=== PATIENT | male | born 1960 | race Caucasian/White ===

== ENCOUNTER → 2021-09-22 14:50 | Outpatient (CLI) | payer OTHER, SELFPAY ==
[2021-09-22 16:15] LABS: COVID19 -Nasal RAPID Negative (Negative)
== END ==
PROVIDERS: Visit Provider Physician Assistant
DX: Z20.822 Contact with and (suspected) exposure to COVID-19 (principal)
CPT/HCPCS: 87635

== ENCOUNTER 2021-09-24 09:08 | Observation (INO) | payer OTHER, SELFPAY ==
[2021-09-11 08:47] VITALS: BMI 39.6
[2021-09-24] VITALS (23 sets, daily range): BP systolic 115–170; BP diastolic 70–85; PULSE 75–95; RESP 8–18; TEMP 36.7–37.1; O2SAT 90–100; BMI 39.6
[2021-09-24] MEDS: LACTATED RINGERS 1,000 ML 42 ML IV ×2 (09:50→13:40)
--- NOTE | 2021-09-24 10:47 | PM.PREOP ---
Pre-operative Note COVID-19 COVID-19 status: Negative Result date/Date tested (Pos, Neg/Pending): 09/23/21 Interval Note History & Physical reviewed/Exam performed by Physician: Yes Changes to H&P: No
[2021-09-24] MEDS: CEFAZOLIN 2 GM/20 ML SYRINGE IV ×2 (11:15→18:25)
--- NOTE | 2021-09-24 11:38 | SUR.OPER ---
Prone on spine table, head in foam head support, padded chest and pelvic supports, gel pad at knees, lower legs supported by pillows; nipples, genitalia and toes free of pressure, arms secured on foam padded arm boards at <90 degrees abduction. Tape over blanket at thigh secured to table. Gel pad placed between patients heels and to left abdominal area between bed frame and patient. In pre-op, patients glasses and cell phone placed in patients belongings bag. Patient stated he turned off his neuro stimulator and device brought to OR then to PACU with patient.
[2021-09-24] MEDS: BUPIVACAINE 0.25% (PF) 30 ML, EPINEPHrine 0.15 MG INJ (11:49)
[2021-09-24] MEDS: BUPIVACAINE LIPOSOME 266 MG/20 ML VIAL INJ (13:05)
--- NOTE | 2021-09-24 13:09 | DI.RAD.S_ITS ---
PROCEDURE: XR LUMBAR SPINE 2-3V INDICATIONS: L3-4 TLIF TECHNIQUE: 2 intraoperative fluoroscopic views of the lumbar spine were acquired. COMPARISON: None. FINDINGS: Intraoperative fluoroscopic images of lumbar spine shows transpedicular fusion of L3 and L4 vertebral bodies with intervertebral spacer placement. IMPRESSION: Fluoro guidance was provided intraoperatively for posterior fusion at L3-4 level. Dictated by: Qamar Rodney M.D. on 09/24/2021 at 13:47 Approved by: Qamar Rodney M.D. on 09/24/2021 at 13:56
--- NOTE | 2021-09-24 13:30 | P.OP_ITS ---
Operative Date/Time/Diagnoses Date of procedure: 09/24/21 Time of procedure: 11:30 Pre-op diagnosis: 1. L3-4 far lateral disc herniation with radiculopathy 2. Spinal stenosis with radiculopathy Post-op diagnosis: same Procedure & Clinicians Procedure: 1. L3-4 Postero-lateral and posterior interbody fusion 2. L3-4 interbody cage placement. 3. L3-4 decompressive laminectomy with bilateral facetecomies 4. L3-4 Posterior non-segmental instrumentation 5. [place] of bone marrow from iliac crest 6. Utilization of microsurgical technique and operating microscope Same procedure as scheduled: Yes Indications: Patient has been having chronic back pain and worsening lumbar radiculopathy. Patient failed multiple conservative management with worsening pain weakness and numbness in her lower extremity. Patient has been having difficulty performing activity of daily living. After discussing risks benefits of treatment options, patient elected proceed with surgery. Surgeon: Anita Rosario Crusher And Binder Operator: Benigno Bhat Click Yes if Unassisted: No Anesthesia Type: General Operative Notes Closure Type: primary Specimen(s): none sent Prosthetic devices, grafts, tissues, transplants, or devices: Globus revolve screws, Rise cage Estimated Blood Loss (mL): 50 Blood products transfused: none Procedure in detail: Patient was seen in the preoperative area. Risks and benefits of the surgery was discussed with the patient. Informed consent was obtained from the patient and placed in the chart. Surgical site was marked. Patient was taken to the operative room. General anesthesia was administered. Prophylactic antibiotic was given to the patient less than 30 min before the incision was made. Patient was placed into a prone position on the Uriel table. Patient's back was then prepped and draped in the sterile fashion. Time-out was performed at this time. Using AP and lateral C-arm imaging the interval between L3-4 was identified and marked on patient's back. A 2 inch incision 2 in from midline was made on the right side first. The spinal cord stimulator cable/wire was immediately visualized after the skin incision was made. The wire is quite superficial buried in the superficial subcutaneous fat. The wire was protected throughout the entire procedure. The fascia was incised in line with skin incision. Globus MARS retractors was placed inside the incision and docked onto the L3 lamina. Using microsurgical technique and operating microscope, a L3 laminectomy and L3- 4 facetectomy was performed using a Kerrison rongeur. The disc space at L3-4 was identified. And a total diskectomy was performed at L3-4 level. The endplates were decorticated using a rasp and shaver. The total diskectomy and decortication was performed at L3-4 level in order to to accomplish a L3-4 fusion. Patient was found have a large L3-4 far lateral disc herniation impinging on the L3 nerve root on the right side. The disc herniation along with the rest of the disc material was removed and the neural foramen and epidural space was fully decompressed after the diskectomy and facetectomy laminectomy was completed. The local bone from the laminectomy and facetectomy was saved for local bone grafting. After the total diskectomy and decortication was completed, Trifecta bone graft material was combined with local bone that was harvested earlier. At this time, a separate skin is incision was made over the iliac crest. A Jamshidi needle was inserted into the iliac crest through a separate skin incision. 5 cc of bone marrow aspiration was obtained through the separate skin incision using a Jamshidi needle from the iliac crest. The bone marrow aspiration was combined with local bone and the Trifecta bone grafting material. The bone grafting material was placed into the L3-4 interbody space along with a expandable cage. The cage was expanded to its maximum height using the torque limiting screwdriver. At this time a mirror image incision was made on the left side. The fascia was incised in line with the skin incision. Globus MARS retractor was inserted and docked onto the L3-4 posterolateral gutter. Using the power drill, posterior- lateral decortication was performed at L3-4 level until bleeding cortical bone was identified. The remaining bone grafting material was placed into the L3-4 posterior lateral gutter he order to accomplish posterolateral fusion at the L3- 4 level. Using the double C-arm technique, pedicle screws were placed into the L3-4 pedicles bilaterally. This was done by placing the Jamshidi needle into the pedicles, then placing the guidewires over the Jamshidi needle, and finally placing the cannulated screws over the guidewires bilaterally. After the pedicle screws were placed, 2 titanium rods was locked into the heads of the pedicle screws using locking caps and torque limiting screwdriver. After all the hardware was placed, and confirmed with AP and lateral C-arm imaging, the wound was then irrigated with sterile normal saline and packed with Ray-Pablito gauze for 3 min to accomplish hemostasis. After the gauze was removed the deep fascia was closed with #1 Vicryl suture. The subcutaneous layer was closed with 2-0 Vicryl. The skin was closed with skin marlen. Patient tolerated the procedure well. There were no complications. Complications: none Post-operative Condition: stable Disposition: PACU Plan for aftercare: Admit to inpatient hospital
[2021-09-24] MEDS: HYDROMORPHONE 2 MG INJ IV ×3 (13:39→14:05)
[2021-09-24] MEDS: hydrOXYzine 50 MG/ML INJ IM (13:41)
[2021-09-24] MEDS: OXYCODONE/ACETAMINOPHEN 5/325 TABLET 1 TAB PO ×2 (13:53→14:47)
[2021-09-24] MEDS: SODIUM CHLORIDE 0.9% 1,000 ML 100 ML IV (15:55)
[2021-09-24] MEDS: OXYCODONE/ACETAMINOPHEN 5/325 TABLET 2 TAB PO ×2 (18:27→22:32)
[2021-09-24] MEDS: DOCUSATE 100 MG CAPSULE PO (20:19)
[2021-09-24] MEDS: ATORVASTATIN 20 MG TABLET PO (20:19)
[2021-09-24] MEDS: SENNOSIDES 8.6 MG TABLET 17.2 MG PO (20:19)
[2021-09-24] MEDS: hydrOXYzine pamoate 25 MG CAPSULE PO (20:19)
[2021-09-24] MEDS: GABAPENTIN 600 MG TABLET 1200 MG PO (20:19)
[2021-09-24] MEDS: HYDROMORPHONE 0.5 MG INJ IV (20:23)
[2021-09-25] MEDS: SODIUM CHLORIDE 0.9% 1,000 ML 100 ML IV (01:27)
[2021-09-25] MEDS: HYDROMORPHONE 0.5 MG INJ IV ×3 (01:31→11:40)
[2021-09-25 03:00] VITALS: BP 128/69; PULSE 69; RESP 16; TEMP 36.8; O2SAT 95
[2021-09-25] MEDS: CEFAZOLIN 2 GM/20 ML SYRINGE IV (03:25)
[2021-09-25] MEDS: OXYCODONE/ACETAMINOPHEN 5/325 TABLET 2 TAB PO ×2 (03:25→09:40)
[2021-09-25] MEDS: ESCITALOPRAM 10 MG TABLET 20 MG PO (08:26)
[2021-09-25] MEDS: METFORMIN HCL 500 MG TABLET PO (08:26)
[2021-09-25] MEDS: DOCUSATE 100 MG CAPSULE PO (08:26)
[2021-09-25] MEDS: GABAPENTIN 300 MG CAPSULE 900 MG PO (08:28)
[2021-09-25 09:27] VITALS: BP 142/82; PULSE 65; RESP 16; TEMP 37.2; O2SAT 96
[2021-09-25] MEDS: hydrOXYzine pamoate 25 MG CAPSULE PO (09:40)
--- NOTE | 2021-09-25 10:28 | DIET.CONS ---
Dietary Consultation Note RD Note: Dietary Unit Host notified RD pt newly dx c DM2, not indicated in chart. Pt on general diet c no BG checks. Pt reports not knowing how to manage condition. RD notified nursing staff who will contact Ortho for orders. Adequate BG control will aid healing. Pt PCP outside of our area, recc pt f/u c PCP for outpatient DM education. This RD to give starter nutrition education today. Ht: 170.18 cm Wt: 114.759 kg BMI: 39.6 UBW: Last BM: 09/24/21 (09/24/21 15:22) MNA: 14 Joe Score: 19 Diet: 09/24/21 Dinner General (Regular) Diet Diet Modifications: Nutrition Percent Meal Consumed 100% 09/25/21 09:27 Percent Meal Consumed 100% 09/24/21 18:30 Electronically Signed by: Alissa Ramirez 09/25/21 10:28 Clinical Dietitian [address] [address]
--- NOTE | 2021-09-25 10:41 | P.DS_ITS ---
History of Present Illness History of Present Illness Date Patient Seen: 09/25/21 Time Patient Seen: 10:41 Chief complaint: Low back pain s/p TLIF Narrative: Patient is complaining of moderate low back pain this morning. He has a chronic pain management patient. He notes his right-sided leg symptoms have improved significantly, he notes a decrease in burning and nerve type pain in the right leg. No fevers, chills, night sweats. Overall he is feeling well and working with PT, and would like to be discharged home today. Discharge Providers Provider Discharge Date: 09/25/21 Primary care physician: Breonna Graf DO Consults: 09/24/21 14:58 Consult to Occupational Therapy Evaluate & Treat Comment: Physician Instructions: Evaluate and treat Consult to Physical Therapy Evaluate & Treat Comment: Physician Instructions: Evaluate and Treat Discharge provider: Beverly Cortes PA-C Summary Hospital Course Discharge Diagnosis: 1. L3-4 far lateral disc herniation with radiculopathy 2. Spinal stenosis with radiculopathy Hospital Course: Date of procedure: 09/24/21 Time of procedure: 11:30 Procedure & Clinicians Procedure: 1. L3-4 Postero-lateral and posterior interbody fusion 2. L3-4 interbody cage placement. 3. L3-4 decompressive laminectomy with bilateral facetecomies 4. L3-4 Posterior non-segmental instrumentation 5. [place] of bone marrow from iliac crest 6. Utilization of microsurgical technique and operating microscope Same procedure as scheduled: Yes Indications: Patient has been having chronic back pain and worsening lumbar radiculopathy. Patient failed multiple conservative management with worsening pain weakness and numbness in her lower extremity.? Patient has been having difficulty performing activity of daily living.? After discussing risks benefits of treatment options, patient elected proceed with surgery. Surgeon: Anita Rosario Director Of Entertainment: Benigno Bhat Click Yes if Unassisted: No Anesthesia Type: General Operative Notes Closure Type: primary Specimen(s): none sent Prosthetic devices, grafts, tissues, transplants, or devices: Globus revolve screws, Rise cage Estimated Blood Loss (mL): 50 Blood products transfused: none Status at Discharge Cognitive/behavioral status at discharge: oriented Functional status at discharge: uses cane/walker Overall status at discharge: patient is progressing back to baseline Exam Vital Signs (past 8 hours): - 09/25/21 03:00 09/25/21 09:27 Temperature 98.3 F 99.0 F Pulse Rate 69 65 Respiratory Rate 16 16 Blood Pressure 128/69 142/82 H Pulse Oximetry 95 96 Oxygen Delivery Method Nasal Cannula Oxygen Flow Rate 2 Narrative Exam Narrative: Pleasant 61-year-old male, resting comfortably in his chair, no acute distress. is at bedside. Dressing demonstrates some bloody discharge on the left side, no surrounding erythema ecchymosis or induration. Bilateral lower extremity: Motor function is grossly intact, sensation is mildly decreased on the right as compared to the left (which patient notes this is based baseline), calves are soft and nontender to palpation. [facility] Medical History Depression Detached retina, left Diabetes DVT (deep venous thrombosis) (~2007) Glaucoma HLD (hyperlipidemia) Kidney stones Lumbar disc herniation JOSE LUIS (obstructive sleep apnea) Presence of neurostimulator (04/08/14) Sciatica Spinal stenosis Tinnitus Surgical History History of colonoscopy (09/05/21) History of surgery Hx of appendectomy Hx of detached retina repair Hx of lithotripsy Hx of microdiscectomy Hx of umbilical hernia repair Social History household members: spouse Smoking Status: Never smoker alcohol intake: current Discharge Assessment & Plan Assessment and Plan Assessment: Stable status post TLIF Plan of Treatment: -mobilize with PT. Limit bending, lifting, twisting. Weightbearing as tolerated with front wheel walker -continue with current pain regimen -encourage ambulation and ankle pumps to prevent DVT, as patient has a history of a DVT -DC home once cleared by PT Discharge Plan Discharge Plan Patient Disposition: Home Discharge orders & Medications Discharge Orders: Discharge (Order); Ordered 09/25/21 Ordered By: Beverly Cortes Prescriptions: New docusate sodium 100 mg Capsule 100 mg PO BID PRN (Reason: Constipation from narcotic pain meds) Qty: 30 0RF hydroxyzine pamoate 25 mg Capsule 25 mg PO Q4HR PRN (Reason: Muscle spasms, pain, nausea) Qty: 30 0RF oxycodone-acetaminophen 5-325 mg Tablet 2 tab PO Q4HR PRN (Reason: Pain, Severe (7-10)) Qty: 42 0RF Continued gabapentin 600 mg Tablet 600 mg PO SEEINSTR 0RF Rx Instructions: 900mg qam, 900 qpm, 1200mg bedtime ibuprofen 800 mg Tablet 800 mg PO BID-TID PRN (Reason: Pain) 0RF aspirin 81 mg Tablet,Delayed Release (Dr/Ec) 81 mg PO BEDTIME 0RF simvastatin 40 mg Tablet 40 mg PO QPM 0RF escitalopram oxalate 20 mg Tablet 20 mg PO DAILY 0RF Xtampza ER 18 mg Cap,Sprinkl,Er12hr(Dont Crush) 18 mg PO BID 0RF Rx Instructions: must administer with a meal/food metformin 500 mg tablet 500 mg PO DAILY 0RF Follow up/Referrals: Breonna Graf DO [Primary Care Provider] - Anita Rosario MD [Physician] - (10-14 days for postoperative visit) Diet/Activity/Treatments Diet: Diet as Tolerated and Regular Other treatments: Medications: -Percocet 5/325 take 1-2 tablets every 4 hours as needed for moderate-severe pain (narcotic pain medication). -As needed medications: -Ducolax and /or MiraLax as needed for constipation from narcotic pain medications. -Pepcid AC as needed for stomach upset. -Vistaril (hydroxyine) 25mg 1 tab every 4 hours as needed for spasms/pain/nausea. Dressing/Wound care: -Keep dressing in place until postoperative follow-up office visit. -Okay to shower. Keep wound out of direct water stream. Can use PressNSeal plastic wrap to protect from shower stream. No soaking or submerging until all the scabs fall off (approximately 6 weeks). -Please call the office if dressing becomes wet, soiled, or saturated. Activities: -Limit bending, lifting, twisting. -Weight-bearing as tolerated. Use front wheeled walker, and progress to cane when safe. -Continue with home exercises as directed by your physical therapist. -Ice your incision as needed for pain/inflammation/swelling. Protect your skin with a folded pillowcase. Follow-up: -Follow-up with your surgeon or PA in the office in 10-14 days after surgery. -Follow-up with your surgeon 6 weeks postoperatively. Call the office if you have chest pain, shortness of breath, significant swelling that will not resolve with elevating, fever over 101?, significantly worsening pain. [facility]: [phone] Skin/Wound/Dressing Care Report to your healthcare provider any signs of infection, such as:: chills, fever, night sweats, unusual drainage and unusual redness Visit Report/Discharge Packet Instructions: DI for Transforaminal Lumbar Interbody Fusion Stand Alone Forms: Surgery Discharge Discharge Data Primary Care Provider: Breonna Graf Attending Provider: Anita Rosario VTE Deep Vein Thrombosis/Pulmonary Embolism Present on Admission: No
--- NOTE | 2021-09-25 11:08 | PT.IIE ---
Current Diagnoses Spinal stenosis, lumbar region without neurogenic claudication (09/24/21) Intervertebral disc disorders with radiculopathy, lumbar region (09/24/21) Other intervertebral disc displacement, lumbar region (09/24/21) Surgery Performed Operation Date: 09/24/21 10:45 Actual Procedures p L3-4 TLIF - Anita Rosario MD Medical History (Last Reviewed 09/25/21 @ 10:43 by Beverly Cortes PA-C) Depression Detached retina, left Diabetes DVT (deep venous thrombosis) (~2007) Glaucoma HLD (hyperlipidemia) Kidney stones Lumbar disc herniation JOSE LUIS (obstructive sleep apnea) Presence of neurostimulator (04/08/14) Sciatica Spinal stenosis Tinnitus Physical Therapy Inpatient Evaluation/Re-Eval M1 PT/OT-IP Prior Functional Status Start: 09/25/21 12:08 Freq: NEEDED Status: Active Protocol: Document 09/25/21 11:08 DLM (Rec: 09/25/21 12:39 DLM [id number]) Medical Review Prior Functional Status Medical History Reviewed Yes Diet/Fluid Consistency Regular Communication WNL, wears glasses Mobility and Gait Independent without a device, limited by his back pain Activities of Daily Living and IADL's Independent Prior Functional Level (Other details) his goal after surgery is to be more active and travel more Social History Household Members spouse Living Arrangements House Number of Floors (Floors) Two Floors Number of Stairs To Enter/Railing? 2 with rail at front, garage has 2 without rail Home Environment Standard Height Toilet,Walk in Shower,Built-In Shower Seat Home Equipment Front Wheel Walker,Hospital Bed M2 PT-IP Current Condition Start: 09/25/21 12:08 Freq: NEEDED Status: Active Protocol: Document 09/25/21 11:08 DLM (Rec: 09/25/21 12:39 DLM [id number]) Physical Therapy Current Condition Current Condition Evaluation Date 09/25/21 Treatment Diagnosis L3-4 TLIF, impaired mobility/ gait Onset Date 09/24/21 M3 PT-IP Subjective Start: 09/25/21 12:08 Freq: NEEDED Status: Active Protocol: Document 09/25/21 11:08 DLM (Rec: 09/25/21 12:39 DLM [id number]) Subjective Physical Therapy Visit Type Type Initial Evaluation Visit Start Time 10:15 Visit Stop Time 11:08 Total Visit Minutes 53 Number of ESCROW MANAGER Visits 0 Physical Therapy Visit Comments Patient Comments He reports most of his pain is in the surgical area, burning in right LE has resolved since surgery Patient Goals wants to go home today Therapy Pain Assessment Pain When Pain Assessed After Treatment Pain Present Pain Present Pain Reported Location Lower Back Intensity 3 Scale Used Numeric (0 - 10) Description Aching,Tender,With Movement Pain Behaviors Facial Grimacing,Guarding Pain Management Techniques Re-positioning,Timing of Activity with Medications M4 PT-IP Mobility and Gait Start: 09/25/21 12:08 Freq: NEEDED Status: Active Protocol: Document 09/25/21 11:08 DLM (Rec: 09/25/21 12:39 DLM [id number]) PT-Bed Mobility Assessment Rolling Type of Rolling Log Rolling,Roll to Right,Roll to Left Level of Assist Independent Supine to Sit Supine to Sit Standby Assistance,Minimal Assistance,Bedrails Sit to Supine Sit to Supine Standby Assistance,Bedrails Scooting Scooting to Edge of Bed Independent Scooting Up and Down in Bed Independent PT-Transfer Assessment Sit to and From Stand Sit to and from Stand Standby Assistance,Use of Upper Extremities Equipment Transfer Assistive Device Gait Belt,Front Wheeled Walker Transfers Transfer Destination Bed,Chair Transfer Technique Stand Step Pivot Transfer Ability Level of Assist Standby Assistance,Use of Upper Extremities Comments Mobility Comments more difficulty getting up from the recliner than the bed , education in how to safely use UE's to assist him, he does better getting into the bed when it is flat Gait Assessment Gait Gait Assistance Required: Standby Assistance Distance (Feet) 400 Assistive Devices Assistive Device Gait Belt,Front Wheeled Walker Factors Limiting Gait Function Factors Limiting Gait Function Decreased Activity Tolerance, Pain Comments Gait Comments pt feels safer during gait with FWW with UE support than without a device Stair Climbing Assessment Evaluation Level of Assist On Stairs Standby Assistance Devices Stair Climbing Assistive Devices Right Railing Technique/Endurance Stair Climbing Direction Ascend and Descend Stair Climbing Technique Step Over Step,Step to Step Number of Steps Climbed 3 Query Text: Stair Climbing Set # Repetitions (reps) 2 PT-Balance Assessment Sitting Balance and Reactions Static Sitting Balance Ability Normal Dynamic Sitting Balance Ability Normal Standing Balance and Reactions Static Standing Balance Ability Good Dynamic Standing Balance Ability Good Device Used FWW M5 PT-IP Objective Assessments Start: 09/25/21 12:08 Freq: NEEDED Status: Active Protocol: Document 09/25/21 11:08 DLM (Rec: 09/25/21 12:39 DL [id number]) Orientation Orientation/Cognition Level of Alertness Alert Orientation Name,Age,Birthday,Month,Date, Year,Day of Week,Place, Situation Language Function Ability No Deficits Noted Safety Awareness Understands Safety Issues Memory Description No Deficits Noted Gross Range of Motion Upper Extremity ROM Assessment Within Functional Limits Lower Extremity ROM Assessment Within Functional Limits Strength Upper Extremity Strength Assessment Within Functional Limits Lower Extremity Strength Assessment Within Functional Limits Comments Strength Comments back limited by post-op pain and precautions, he demonstrates good weight bearing on LE's and no difficulty up/down steps Coordination Assessment Gross Coordination Gross Coordination WNL Sensation Assessment Sensation Gross Sensation Right LE Impaired Light Touch Intact Proprioception (Position) Intact Comments Sensation Comments mild difference right LE vs left but much better thann before sx per pt Muscle Tone Muscle Tone WNL Yes M6 PT-IP Treatment Start: 09/25/21 12:08 Freq: NEEDED Status: Active Protocol: Document 09/25/21 11:08 DLM (Rec: 09/25/21 12:39 DL [id number]) Physical Therapy Treatment Education Education Provided Precautions,Safety Other Treatments Other Treatment Performed His is present for education and training M7 PT-IP Assessment and Plan Start: 09/25/21 12:08 Freq: NEEDED Status: Active Protocol: Document 09/25/21 11:08 DLM (Rec: 09/25/21 12:39 [facility] [id number]) PT Summary Assessment and Plan Potential Rehabilitation Potential Good Status of Condition at Evaluation Evolving Summary Impairments Pain,ROM,Strength,Balance,Bed Mobility,Transfers,Gait, Activity Tolerance Progress Towards Goals Safe For Discharge,Goals Met Assessment Summary Alan is alert and resting in bed. He reports 5/10 back pain in bed. His back pain decreased to 3/10 in the recliner. He tolerated gait well with the FWW. He is safe going up and down stairs. Completed back precaution education this visit for post- op spine. He has a supportive to help at discharge. He appears safe to discharge home today when medically cleared. Frequency of Treatment Frequency Of Treatment Discharge Treatment Plan Physical Therapy Treatment Plan Bed Mobility Training,Transfer Training,Gait Training, Therapeutic Exercise,Post Op Education,Discharge Planning Other Recommendations and Next Treatment training completed this visit Focus Precautions Lumbar Precautions Log Roll,No Twisting,Limit Bending,Lifting Restriction of 10 lbs,Gait Belt above Incisional Area Recommendations To Nursing Amount of Assist Needed Standby Assistance Discharge Recommendations PT Discharge Recommendations Home with Assistance Transportation Needs at Discharge Private Vehicle
--- NOTE | 2021-09-25 11:13 | CM.DANOTE ---
DCP: Case received, EMR reviewed and met with patient. Introduced self and role. Was able to obtain information regarding patient's baseline activity status prior to his surgery. DCP assessment completed with information currently available. Patient is a 61 year old male who admitted yesterday morning to the care of the orthopedic team. PCP: Dr. Graf. Payer: confirmed: [employer]. Patient came to the hospital via private vehicle for a surgical procedure. Patient had L3-4 postero-lateral and posterior interbody fusion. Patient has history of spinal stenosis. Met with patient in his room. He is pleasant, alert and oriented. He was in bed. He is hopeful to go home today. Confirmed with patient that he resides with his spouse, Arelis, in [place]. He indicated, his will be able to asist him, she is a teacher and off for school break. He is independent at his baseline, and is employed at [employer] in [place]. P: Patient is to discharge home today after he is cleared by P.T. Isha Bustamante RN/Table Runner Discharge Planning/Care Management CM Discharge Assessment Start: 09/25/21 11:11 Freq: Status: Active Protocol: Document 09/25/21 11:11 (Rec: 09/25/21 11:13 [id number]) Discharge Planning Assessment Assigned Machine Hose Cutter Isha Bustamante RN/Table Runner Advance Directives? No History Provided By Patient,Medical Record Prior Living Arrangements House Household Members spouse Type of transporation used prior to Drives own vehicle admit Independent with ADL's Yes Is patient alert and oriented? Yes Caregiver for Another No Barriers to Discharge No Discharge Plan Home Transportation Arrangement Spouse Referrals Initiated None needed Whiteboard Updated in Patient Room with Yes name and ext. # of Machine Hose Cutter Review Status In Process Next Review Type Continued Stay Review Pre-Anesthesia Assessment Start: 09/11/21 08:47 Freq: Status: Complete Protocol: Document 09/11/21 08:47 CAB (Rec: 09/11/21 09:48 CAB [id number]) Pre-Anesthesia Assessment PAC Comment Neurostim - implanted right buttock, pt will bring remote to turn off for surgery Patient Information Reviewed Via Phone Assessment Assessment Completed With Patient Comment Pt needs to do labs/EKG/COVID Primary Care Provider Breonna Graf Seen Specialist in Last 12 Months Yes Specialist Seen Orthopedist Primary Language [place] Wire Harness Assembler Required No Height 5 ft 7 in Weight 253 lb Body Mass Index (BMI) 39.6 Hearing Ability Normal Visual Assist Glasses Dentition Type Teeth, Natural Present Barriers to Learning None Hx Anesthesia Reactions No: I'm a shallow breather JOSE LUIS, mild per pt, no CPAP required Hx Family Anesthesia Reaction No Hx Malignant Hyperthermia No Hx Blood Transfusions No Anesthesia Review Requested No alcohol intake current alcohol intake frequency holidays/special occasions only Smoking Status Never smoker Substance Use Type does not use Pain Present Pain Reported Musculoskeletal Symptoms Abnormal Gait,Back Pain, Difficulty Walking,Radiating Pain into Limb History of Falling (Recent or History of No ) Patient is completely paralyzed or No completely immobile Mental Status Oriented to own ability Is patient on oxygen? No Does patient have ORTIZ/SOB No Hx Sleep Apnea Yes: Mild, per pt, no CPAP required Currently Taking a Beta Nadeen No Can You Climb a Flight of Stairs Without Yes SOB Hx Chest Pain No Hx SOB No Hx Syncope or Dizziness No Anti-Coagulant Therapy No Has a Research Investigator No Cardiac Testing No Hx Pacemaker/ICD No Pacemaker Rep Required? No Cardiac Clearance Received Not Applicable Diet Type At Home Regular dysphagia No Urinary Catheter Present No Hx Urinary Self Catheterization No Diabetes No Hx Drug Resistant Organism No Presence of External or Internal Medical Yes: Neurostimulator Devices Have you had any close contact with No someone diagnosed with COVID-19? Received a COVID vaccine? Yes Received all doses? Yes Marital Status Lives With spouse Prior Living Arrangements House Number of Floors (Floors) Two Floors Support System Spouse Does the Patient Have Assistance After Yes Surgery Patient Discharge Plan Description Return Home Comment Pt advised 1-2 day length of stay per surgeon's office Feels Safe in Current Environment Yes Been Physically Hurt or Threatened By a No Person in Current Environment Do you have thoughts of harming yourself Vague or others? Are you currently considering suicide? No Do you have a plan to hurt yourself or No Plan others? Comment Pt states has had thoughts in the past, denies any current thoughts Do You Have Any Spiritual Beliefs That No May Affect Your HC Choices? Do You Have Any Cultural Practices That No May Affect Your HC Choices? Who Can We Speak to About Patient's Care Family, friends Identifying Code for Release of Patient Declines to issue Information Health Care Proxy/Next of Kin Arelis () Health Care Proxy Emergency Contact Name Arelis () Emergency Contact Advance Directives? No Power of Behavioral Health Tech No PAC Instructions Durable medical equipment, Medications to take/avoid, Nasal antibiotic,No ETOH/ petroleum product on skin DOS, NPO,Post-op transportation, Sensory aids,Sturdy shoes/ comfortable clothes,Do not bring valuables and remove jewelry
--- NOTE | 2021-09-25 11:40 | OT.IP.EVAL ---
Current Diagnoses Spinal stenosis, lumbar region without neurogenic claudication (09/24/21) Intervertebral disc disorders with radiculopathy, lumbar region (09/24/21) Other intervertebral disc displacement, lumbar region (09/24/21) Surgery Performed Operation Date: 09/24/21 10:45 Actual Procedures p L3-4 TLIF - Anita Rosario MD Past Medical History (Last Reviewed 09/25/21 @ 10:43 by Beverly Cortes PA-C) Depression Detached retina, left Diabetes DVT (deep venous thrombosis) (~2007) Glaucoma History of colonoscopy (09/05/21) History of surgery HLD (hyperlipidemia) Hx of appendectomy Hx of detached retina repair Hx of lithotripsy Hx of microdiscectomy Hx of umbilical hernia repair Kidney stones Lumbar disc herniation JOSE LUIS (obstructive sleep apnea) Presence of neurostimulator (04/08/14) Sciatica Spinal stenosis Tinnitus Surgical History (Last Reviewed 09/25/21 @ 10:43 by Beverly Cortes PA-C) History of colonoscopy (09/05/21) History of surgery Hx of appendectomy Hx of detached retina repair Hx of lithotripsy Hx of microdiscectomy Hx of umbilical hernia repair Occupational Therapy Inpatient Evaluation/Re-Eval M1 PT/OT-IP Prior Functional Status Start: 09/25/21 12:08 Freq: NEEDED Status: Discharge Protocol: Document 09/25/21 11:08 DLM (Rec: 09/25/21 12:39 DLM [id number]) Medical Review Prior Functional Status Medical History Reviewed Yes Diet/Fluid Consistency Regular Communication WNL, wears glasses Mobility and Gait Independent without a device, limited by his back pain Activities of Daily Living and IADL's Independent Prior Functional Level (Other details) his goal after surgery is to be more active and travel more Social History Household Members spouse Living Arrangements House Number of Floors (Floors) Two Floors Number of Stairs To Enter/Railing? 2 with rail at front, garage has 2 without rail Home Environment Standard Height Toilet,Walk in Shower,Built-In Shower Seat Home Equipment Front Wheel Walker,Hospital Bed M1 PT/OT-IP Prior Functional Status Start: 09/25/21 13:02 Freq: NEEDED Status: Active Protocol: Document 09/25/21 11:00 [facility] (Rec: 09/25/21 13:16 [facility] [id number]) Medical Review Prior Functional Status Medical History Reviewed Yes Diet/Fluid Consistency Regular Communication WNL, wears glasses Mobility and Gait Independent without a device, limited by his back pain Activities of Daily Living and IADL's Independent but had pain during ADL and IADL needs. Prior Functional Level (Other details) his goal after surgery is to be more active and travel more Social History Household Members spouse Living Arrangements House Number of Floors (Floors) Two Floors Number of Stairs To Enter/Railing? 2 with rail at front, garage has 2 without rail Home Environment Standard Height Toilet,Walk in Shower,Built-In Shower Seat Home Equipment Front Wheel Walker,Hospital Bed M2 OT-IP Current Condition Start: 09/25/21 13:02 Freq: Status: Active Protocol: Document 09/25/21 11:00 [facility] (Rec: 09/25/21 13:16 [facility] [id number]) Occupational Therapy Current Condition Current Condition Evaluation Date 09/25/21 Treatment Diagnosis S/p L3-4 TLIF Diagnosis Onset Date 09/24/21 Post Operative Precautions Lumbar Precautions Log Roll,No Twisting,Limit Bending,Lifting Restriction of 10 lbs,Gait Belt above Incisional Area M3 OT- IP Subjective and Pain Start: 09/25/21 13:02 Freq: Status: Active Protocol: Document 09/25/21 11:00 [facility] (Rec: 09/25/21 13:16 [facility] [id number]) OT- Subjective Occupational Therapy Visit Type Type Initial Evaluation Visit Start Time 11:00 Visit Stop Time 11:40 Total Visit Minutes 40 Occupational Therapy Visit Comments Patient Comments Pt agreed to work with OT and wanting to shower at home but willing to get dressed. Patient/Caregiver Goals To go home OT Pain Assessment Pain When Pain Assessed At Rest Pain Present Pain Present Pain Reported Location Lower Back Intensity 3 Scale Used Numeric (0 - 10) M4 OT- IP ADL's Start: 09/25/21 13:02 Freq: Status: Active Protocol: Document 09/25/21 11:00 [facility] (Rec: 09/25/21 13:16 [facility] [id number]) OT Oral Care Pt educated best to spit into a cup to best follow his back precautions. OT ADL-Dressing General Eval Upper Body Dressing Ability Independent Lower Body Dressing Ability Minimal Assistance Areas Needing Assistance Shoes Comments OT Dressing Comments Able to educate pt on use of LB dressing equipment and states will get a kohinoor operator and sock aid. Pt's to assist pt at home until Oct 06 and then having to go back to work. OT ADL-Toileting Comments OT Toileting Comments Educated pt on equipment of toilet paper, wet wipes, and bidet to help increase ease for hygiene needs. OT ADL-Bathing Comments OT Bathing Comments Suggested a shower chair or use of FWW in the shower. M5 OT- IP IADL's Start: 09/25/21 13:02 Freq: Status: Active Protocol: Document 09/25/21 11:00 [facility] (Rec: 09/25/21 13:16 [facility] [id number]) OT-Instrumental Activities of Daily Living Home Safety Awareness Home Safety Comments Pt's will be home to assist pt. M6 OT- IP Functional Cognition Start: 09/25/21 13:02 Freq: Status: Active Protocol: Document 09/25/21 11:00 [facility] (Rec: 09/25/21 13:16 [facility] [id number]) Cognitive Factors Limiting Selfcare Function Cognitive Ability Level of Alertness Alert Patient Orientation Name,Age,Birthday,Month,Date, Year,Day of Week,Place, Situation Attention Span Ability Capable of Focused Attention, Capable of Sustained Attention Ability to Follow Commands Able to Follow Multi-Step Commands Memory Description No Deficits Noted Safety Awareness Decreased Ability to Apply Precautions Problem Solving Ability No deficits Noted Cognitive Comments Cognitive Assessment Comments Pt needing reminders to incorporate his back precautions while dressing. M7 OT- IP Mobility and Balance Start: 09/25/21 13:02 Freq: Status: Active Protocol: Document 09/25/21 11:00 [facility] (Rec: 09/25/21 13:16 [facility] [id number]) OT-Transfer Assessment Sit to and From Stand Sit to and from Stand Standby Assistance Transfers Transfer Ability Standby Assistance Technique Transfer Destination Chair Transfer Technique Stand Step Pivot Devices Transfer Assistive Devices Gait Belt,Front Wheeled Walker Comments Mobility Comments SBA to stand. Able to give pt options when coming to stand from lower surfaces. Ideally for pt to push up with both hands on the armrests of the recliner, or use of one hand on the FWW and push with the other hand on the armrest for the recliner. Also mentioned if having trouble to stand to have his hold the FWW in place and use both hands on the FWW to stand . OT- Balance Assessment Sitting Balance and Reactions Static Sitting Balance Ability Normal Dynamic Sitting Balance Ability Good Standing Balance and Reactions Static Standing Balance Ability Good M9 OT- IP Assessment and Plan Start: 09/25/21 13:02 Freq: Status: Active Protocol: Document 09/25/21 11:00 [facility] (Rec: 09/25/21 13:16 [facility] [id number]) OT Summary Assessment and Plan Potential Rehabilitation Potential Good Analytic Complexity at Evaluation Low Summary OT Impairments Pain,Balance,Functional Mobility,Dressing,Toileting, Bathing,Toilet Transfers, Shower Transfers Progress Towards Goals Progressing Toward Goals Assessment Summary Pt low complexity and has a supportive to assist pt for all ADl and mobility needs at home. Pt looking to get and kohinoor operator and sock aid for home use. Pt to go home with his . Goals Grooming Goal Independent Dressing Goal Independent Toileting Goal Independent Bathing Goal Independent Toilet Transfer Goal Independent Shower Transfer Goal Independent Days to Meet Goals 5 Frequency of Treatment Frequency Of Treatment Once a Day Treatment Plan OT Treatment Plan ADL Training,Functional Mobility,Patient/Family Education,Discharge Planning Discharge Recommendations OT Discharge Recommendations Home with Assistance Home Equipment Needs shower chair, kohinoor operator, sock aid, toilet paper aid Transportation Needs at Discharge Private Vehicle
--- NOTE | 2021-09-25 12:44 | PC.NURSE ---
Discharge note: pt has been cleared by PT/OT. Discharge instructions reviewed. REviewed activity restrictions r/t TLIF, reviewed medications, opioid safety, follow up visits, dressing care, signs/symptoms of infection and other symptoms requiring a call to the surgeon. Verbalized understanding. Pt has appt with PCP in [place] to discuss new diagnosis of Diabetes and will receive education at that time. Pt taking metformin daily and is aware of nutrition choices. Wheeled to car, driving.
== END 2021-09-25 12:47 | disposition home or self-care (01) ==
LOC: OR 09:10 → AC 09-25 09:27
PROVIDERS: Admitting Provider Orthopaedic Surgery Orthopaedic Surgery of the Spine; PCP Family Medicine; Referring Provider Orthopaedic Surgery Orthopaedic Surgery of the Spine; Visit Provider Orthopaedic Surgery Orthopaedic Surgery of the Spine
PROC: (CPT 20939; principal; 2021-09-24 10:45)
DX: M51.16 Intervertebral disc disorders with radiculopathy, lumbar region (principal); M51.26 Other intervertebral disc displacement, lumbar region; M48.061 Spinal stenosis, lumbar region without neurogenic claudication; M96.1 Postlaminectomy syndrome, not elsewhere classified; F32.9 Major depressive disorder, single episode, unspecified; E78.5 Hyperlipidemia, unspecified; E66.9 Obesity, unspecified; Z68.39 Body mass index [BMI] 39.0-39.9, adult; Z86.718 Personal history of other venous thrombosis and embolism
CPT/HCPCS: 20939; 22633; 63047; 22853; 22840; 72100; 76000; 82962; 97162; 97165; 97530; 97535; C1776; G0378; C9290; J0171; J0690; J1100; J1170; J2250; J2405; J2704; J3010; J3410